=== PATIENT | male | born 1965 | race Caucasian/White ===

== ENCOUNTER 2022-07-30 12:23 | Emergency (ER) | payer BC ==
[2022-07-30 15:01] LABS: CORONAVIRUS COVID-19 NAA POSITIVE (NEGATIVE); INFLUENZA A NAA NEGATIVE (NEGATIVE); INFLUENZA B NAA NEGATIVE (NEGATIVE); RESPIRATORY SYNCYTIAL VIR NAA NEGATIVE (NEGATIVE)
== END 2022-07-30 15:53 | disposition home or self-care (01) ==
LOC: MW.ED 12:23
DX: U07.1 COVID-19 (principal); Z87.891 Personal history of nicotine dependence
CPT/HCPCS: 0241U; 71046; 99283

== ENCOUNTER 2022-08-17 13:44 | Emergency (ER) | payer BC ==
[2022-08-17 15:55] LABS: CARBON DIOXIDE,CO2 28.2 mmol/L (21.0-32.0); POTASSIUM,K 4.4 mmol/L (3.5-5.1)
[2022-08-17] MEDS ORDERED: Iopamidol 755 MG/ML 500 ML Multipack Bottle IVPUSH STA (16:25)
[2022-08-17] MEDS ORDERED: Morphine 4 MG/ML Syringe IVPUSH ONE (17:55)
[2022-08-17] MEDS ORDERED: Ondansetron 4 MG/2 ML SDV IVPUSH ONE (17:55)
[2022-08-17] MEDS ORDERED: Heparin Sodium 5,000 Units/ML Vial IVPUSH ONE (19:54)
[2022-08-17] MEDS ORDERED: Heparin Sodium/0.45% NaCl 500 ML IV SCH (20:00)
== END 2022-08-17 22:40 ==
LOC: MW.ED 13:44
DX: I72.4 Aneurysm of artery of lower extremity (principal); F17.210 Nicotine dependence, cigarettes, uncomplicated; Z79.899 Other long term (current) drug therapy
CPT/HCPCS: 36415; 75635; 80053; 85025; 85610; 85730; 96365; 96366; 96375; 96376; 99285; J1644; J2270; J2405; Q9967

== ENCOUNTER 2022-09-10 09:30 | Emergency (ER) | payer BC ==
[2022-09-10 12:01] LABS: CARBON DIOXIDE,CO2 29.5 mmol/L (21.0-32.0); POTASSIUM,K 4.2 mmol/L (3.5-5.1)
== END 2022-09-10 13:36 | disposition home or self-care (01) ==
LOC: MW.ED 09:30
DX: T81.31XA Disruption of external operation (surgical) wound, not elsewhere classified, initial encounter (principal); F17.210 Nicotine dependence, cigarettes, uncomplicated; Z79.899 Other long term (current) drug therapy; Z79.82 Long term (current) use of aspirin; Z79.01 Long term (current) use of anticoagulants
CPT/HCPCS: 36415; 80053; 85025; 93926-26-LT; 93926-LT; 99284